=== PATIENT | female | born 1940 | race Caucasian/White ===

== ENCOUNTER → 2018-01-24 | Outpatient (CLI) | payer MEDICARE, OTHER ==
[~2018-01-24] MED LIST: AMLO10; AMLO10 PO; ARIP10 PO; ASPI325; ASPI81CH PO; ATOR20 PO; Abilify5 MG PO; CIPR500 PO; CLOP75 PO; CODACE30 PO; Cilostazol50 MG PO; DONE5 PO; ERGO400 PO; FOLI1 PO; FOLI400 PO; FURO20 PO; LAMO100; LAMO100 PO; LEVSOD125; LEVSOD75 PO; LISI20 PO; METO10 PO; METPHE10 PO; NAPR500; POTA10T PO; Percocet 5-3251 EACH PO; Peri-Colace Ta1 EACH PO; Prozac40 MG PO; RXCODACET PO; Synthroid25 MCG PO; THIA100 PO; TOCO1000 PO; TRAM50 PO; Ultram50 MG PO; VITAMIN B122500 MCG PO; Zofran Odt4 MG SL
[2018-01-24 11:07] LABS: BASOPHILS ABSOLUTE AUTO 0.02 K/mm3 (0.00-0.23); BASOPHILS PERCENT AUTO 1 % (0-2); EOSINOPHILS ABSOLUTE AUTO 0.02 K/mm3 (0.00-0.68); EOSINOPHILS PERCENT AUTO 1 % (0-6); Hematocrit 36.3 % (33.0-51.0); Hemoglobin 12.8 g/dL (11.5-16.0); IMMATURE GRAN ABSOLUTE AUTO 0.01 K/mm3 (0.00-0.10); IMMATURE GRAN PERCENT AUTO 0 % (0-1); LYMPHOCYTES ABSOLUTE AUTO 0.68 K/mm3 (0.84-5.20); LYMPHOCYTES PERCENT AUTO 16 % (21-46); MONOCYTES ABSOLUTE AUTO 0.43 K/mm3 (0.16-1.47); MONOCYTES PERCENT AUTO 10 % (4-13); Mean Corpuscular HGB Conc 35.3 g/dL (31.5-36.5); Mean Corpuscular Volume 91 fL (80-100); Mean Platelet Volume 11.1 fL (9.1-12.4); NEUTROPHILS ABSOLUTE AUTO 3.06 K/mm3 (1.96-9.15); NEUTROPHILS PERCENT AUTO 73 % (41-73); Platelet Count 137 K/mm3 (150-400); RDW Coefficient Variation 13.1 % (11.7-14.2); RDW Standard Deviation 43.6 fL (35.1-46.3); White Blood Cell Count 4.22 K/mm3 (4.00-11.30)
[2018-01-24 11:14] LABS: Bun/Creatinine Ratio 7.1 (12.0-20.0); Calcium, Blood 9.5 mg/dL (8.5-10.1); Creatinine, Blood 1.13 mg/dL (0.40-1.00); Potassium, Blood 4.5 mmol/L (3.5-5.5)
== END | disposition home or self-care (01) ==
LOC: LAB EV 11:04 → LAB SHORT 11:04
PROVIDERS: Physician Assistant Surgical
DX: E86.0 Dehydration (principal)
CPT/HCPCS: 80048; 85025

== ENCOUNTER → 2018-09-10 | Outpatient (CLI) | payer MEDICARE ==
[~2018-09-10] MED LIST changes: +Kristalose20 GM PO; +METO25ER PO; +PRAM.125 PO
[2018-09-10 14:56] LABS: BASOPHILS ABSOLUTE AUTO 0.03 K/mm3 (0.00-0.23); BASOPHILS PERCENT AUTO 1 % (0-2); EOSINOPHILS ABSOLUTE AUTO 0.52 K/mm3 (0.00-0.68); EOSINOPHILS PERCENT AUTO 10 % (0-6); Hemoglobin 11.5 g/dL (11.5-16.0); IMMATURE GRAN ABSOLUTE AUTO 0.02 K/mm3 (0.00-0.10); IMMATURE GRAN PERCENT AUTO 0 % (0-1); LYMPHOCYTES ABSOLUTE AUTO 1.09 K/mm3 (0.84-5.20); LYMPHOCYTES PERCENT AUTO 20 % (21-46); MONOCYTES ABSOLUTE AUTO 0.52 K/mm3 (0.16-1.47); MONOCYTES PERCENT AUTO 10 % (4-13); Mean Corpuscular HGB 32.5 pg (26.0-34.0); Mean Corpuscular HGB Conc 33.8 g/dL (31.5-36.5); Mean Corpuscular Volume 96 fL (80-100); Mean Platelet Volume 12.8 fL (9.1-12.4); NEUTROPHILS PERCENT AUTO 59 % (41-73); Platelet Count 108 K/mm3 (150-400); RDW Coefficient Variation 14.7 % (11.7-14.2); RDW Standard Deviation 51.9 fL (35.1-46.3); Red Blood Cell Count 3.54 M/mm3 (3.80-5.20); White Blood Cell Count 5.38 K/mm3 (4.00-11.30)
[2018-09-10 15:03] LABS: Bun/Creatinine Ratio 13.8 (12.0-20.0); Calcium, Blood 8.6 mg/dL (8.5-10.1); Creatinine, Blood 1.59 mg/dL (0.40-1.00); Potassium, Blood 3.6 mmol/L (3.5-5.5)
== END | disposition home or self-care (01) ==
LOC: LAB SHORT 14:51 → LAB EV 14:51
PROVIDERS: Family Medicine
DX: R19.7 Diarrhea, unspecified (principal)
CPT/HCPCS: 80048; 85025

== ENCOUNTER 2018-09-16 16:10 | Emergency (ER) | payer MEDICARE, OTHER ==
[~2018-09-16] VITALS: Ht 160 cm; Wt 45.4 kg
[~2018-09-16 16:10] MED LIST changes: -Kristalose20 GM PO
[2018-09-16 17:15] LABS: BASOPHILS ABSOLUTE AUTO 0.03 K/mm3 (0.00-0.23); BASOPHILS PERCENT AUTO 1 % (0-2); EOSINOPHILS ABSOLUTE AUTO 0.13 K/mm3 (0.00-0.68); EOSINOPHILS PERCENT AUTO 2 % (0-6); Hematocrit 36.7 % (33.0-51.0); Hemoglobin 12.1 g/dL (11.5-16.0); IMMATURE GRAN ABSOLUTE AUTO 0.02 K/mm3 (0.00-0.10); IMMATURE GRAN PERCENT AUTO 0 % (0-1); LYMPHOCYTES ABSOLUTE AUTO 1.15 K/mm3 (0.84-5.20); LYMPHOCYTES PERCENT AUTO 18 % (21-46); MONOCYTES ABSOLUTE AUTO 0.56 K/mm3 (0.16-1.47); MONOCYTES PERCENT AUTO 9 % (4-13); Mean Corpuscular HGB 32.4 pg (26.0-34.0); Mean Corpuscular Volume 98 fL (80-100); Mean Platelet Volume 12.4 fL (9.1-12.4); NEUTROPHILS ABSOLUTE AUTO 4.52 K/mm3 (1.96-9.15); NEUTROPHILS PERCENT AUTO 71 % (41-73); Platelet Count 133 K/mm3 (150-400); RDW Coefficient Variation 14.7 % (11.7-14.2); RDW Standard Deviation 53.2 fL (35.1-46.3); Red Blood Cell Count 3.74 M/mm3 (3.80-5.20); White Blood Cell Count 6.41 K/mm3 (4.00-11.30)
[2018-09-16 17:31] LABS: International Normalized Ratio 1.15
[2018-09-16 17:43] LABS: Alanine Aminotransfer (ALT/SGP 96 U/L (12-78); Albumin, Blood 3.4 g/dL (3.4-5.0); Albumin/Globulin Ratio 0.9 (0.8-1.8); Alk Phos 209 U/L (50-136); Anion Gap 8 mmol/L (6-16); Aspartate Aminotrans (AST/SGOT 145 U/L (12-37); Bilirubin, Total 0.6 mg/dL (0.1-1.0); Blood Urea Nitrogen 24 mg/dL (8-24); Bun/Creatinine Ratio 32.5 (12.0-20.0); CO2, Blood 24 mmol/L (21-32); Chloride, Blood 103 mmol/L (98-108); Creatinine, Blood 0.74 mg/dL (0.40-1.00); Globulin, Blood 3.6 g/dL (2.2-4.0); Glomerular Filtration Rate >60 (60-); Glucose, Blood 143 mg/dL (70-99); Potassium, Blood 3.8 mmol/L (3.5-5.5); Sodium, Blood 135 mmol/L (136-145)
[2018-09-16] MEDS ORDERED: Kristalose20 GM PO (20:31)
== END 2018-09-16 20:48 | disposition home or self-care (01) ==
LOC: ER 16:10
PROVIDERS: Physician Assistant
DX: K62.3 Rectal prolapse (principal); K59.00 Constipation, unspecified; K64.9 Unspecified hemorrhoids; I10 Essential (primary) hypertension; F20.9 Schizophrenia, unspecified; J44.9 Chronic obstructive pulmonary disease, unspecified; F31.9 Bipolar disorder, unspecified; Z86.73 Personal history of transient ischemic attack (TIA), and cerebral infarction without residual deficits; Z87.891 Personal history of nicotine dependence; Z79.899 Other long term (current) drug therapy
CPT/HCPCS: 46600; 80053; 85025; 85610; 85730; 86850; 86900; 86901; 93005; 93010; 99283-25

== ENCOUNTER → 2018-09-16 | Outpatient (CLI) | payer MEDICARE ==
[2018-09-17 00:06] LABS: Adenovirus F 40/41 Not Detected (NOT DETECT); Astrovirus Not Detected (NOT DETECT); Campylobacter Sp Not Detected (NOT DETECT); Cryptosporidium Not Detected (NOT DETECT); Cyclospora Cayetanensis Not Detected (NOT DETECT); E. Coli O157 Not Detected (NOT DETECT); Entamoeba Histolytica Not Detected (NOT DETECT); Enteroaggregative E. coli-EAEC Not Detected (NOT DETECT); Enteropathogenic E. coli-EPEC Not Detected (NOT DETECT); Enterotoxigenic E. coli-ETEC Not Detected (NOT DETECT); Giardia Lamblia Not Detected (NOT DETECT); Norovirus GI/GII Not Detected (NOT DETECT); Plesiomonas Shigelloides Not Detected (NOT DETECT); Rotavirus A Not Detected (NOT DETECT); Salmonella Sp Not Detected (NOT DETECT); Sapovirus Not Detected (NOT DETECT); Shiga Toxin-prod E. coli-STEC Not Detected (NOT DETECT); Shigella/Enteroin E. coli-EIEC Not Detected (NOT DETECT); Vibrio Cholerae Not Detected (NOT DETECT); Vibrio Sp Not Detected (NOT DETECT); Yersinia Enterocolitica Not Detected (NOT DETECT)
== END | disposition home or self-care (01) ==
LOC: LAB 17:32 → LAB SHORT 17:32
PROVIDERS: Family Medicine
DX: R19.7 Diarrhea, unspecified (principal)
CPT/HCPCS: 87507

== ENCOUNTER 2018-10-30 16:38 | Inpatient (IN) | payer MEDICARE, OTHER ==
[~2018-10-30] VITALS: Ht 165.1 cm; Wt 50.1 kg
[~2018-10-30 16:38] MED LIST changes: +Kristalose20 GM PO
[2018-10-30 18:42] LABS: BASOPHILS ABSOLUTE AUTO 0.03 K/mm3 (0.00-0.23); BASOPHILS PERCENT AUTO 1 % (0-2); EOSINOPHILS PERCENT AUTO 2 % (0-6); Hematocrit 36.8 % (33.0-51.0); Hemoglobin 12.5 g/dL (11.5-16.0); IMMATURE GRAN ABSOLUTE AUTO 0.03 K/mm3 (0.00-0.10); IMMATURE GRAN PERCENT AUTO 1 % (0-1); LYMPHOCYTES PERCENT AUTO 15 % (21-46); MONOCYTES ABSOLUTE AUTO 0.69 K/mm3 (0.16-1.47); MONOCYTES PERCENT AUTO 12 % (4-13); Mean Corpuscular HGB 32.7 pg (26.0-34.0); Mean Corpuscular Volume 96 fL (80-100); Mean Platelet Volume 11.9 fL (9.1-12.4); NEUTROPHILS ABSOLUTE AUTO 4.25 K/mm3 (1.96-9.15); NEUTROPHILS PERCENT AUTO 71 % (41-73); Platelet Count 156 K/mm3 (150-400); RDW Coefficient Variation 14.3 % (11.7-14.2); RDW Standard Deviation 51.2 fL (35.1-46.3); Red Blood Cell Count 3.82 M/mm3 (3.80-5.20)
[2018-10-30 19:08] LABS: Alanine Aminotransfer (ALT/SGP 113 U/L (12-78); Albumin, Blood 2.8 g/dL (3.4-5.0); Albumin/Globulin Ratio 0.8 (0.8-1.8); Alk Phos 148 U/L (50-136); Anion Gap 7 mmol/L (6-16); Aspartate Aminotrans (AST/SGOT 182 U/L (12-37); Bilirubin, Total 0.7 mg/dL (0.1-1.0); Blood Urea Nitrogen 17 mg/dL (8-24); CO2, Blood 25 mmol/L (21-32); Calcium, Blood 8.1 mg/dL (8.5-10.1); Chloride, Blood 97 mmol/L (98-108); Creatinine, Blood 0.71 mg/dL (0.40-1.00); Globulin, Blood 3.6 g/dL (2.2-4.0); Glomerular Filtration Rate >60 (60-); Glucose, Blood 86 mg/dL (70-99); Potassium, Blood 3.5 mmol/L (3.5-5.5); Sodium, Blood 129 mmol/L (136-145); Total Protein, Blood 6.4 g/dL (6.4-8.2); Troponin I 0.016 ng/mL (0.000-0.040)
[2018-10-31 05:26] LABS: Hematocrit 32.5 % (33.0-51.0); Hemoglobin 11.1 g/dL (11.5-16.0); Mean Corpuscular HGB 31.8 pg (26.0-34.0); Mean Corpuscular HGB Conc 34.2 g/dL (31.5-36.5); Mean Platelet Volume 12.5 fL (9.1-12.4); Platelet Count 137 K/mm3 (150-400); Red Blood Cell Count 3.49 M/mm3 (3.80-5.20); White Blood Cell Count 5.22 K/mm3 (4.00-11.30)
[2018-10-31 05:28] LABS: Mean Corpuscular Volume 93 fL (80-100)
[2018-10-31 05:39] LABS: International Normalized Ratio 1.18; Prothrombin Time Results 12.3 Sec (9.7-11.5)
[2018-10-31 05:55] LABS: Alanine Aminotransfer (ALT/SGP 95 U/L (12-78); Albumin, Blood 2.3 g/dL (3.4-5.0); Albumin/Globulin Ratio 0.8 (0.8-1.8); Alk Phos 127 U/L (50-136); Anion Gap 5 mmol/L (6-16); Aspartate Aminotrans (AST/SGOT 167 U/L (12-37); Bilirubin, Total 0.7 mg/dL (0.1-1.0); Blood Urea Nitrogen 17 mg/dL (8-24); Bun/Creatinine Ratio 22.4 (12.0-20.0); CO2, Blood 26 mmol/L (21-32); Calcium, Blood 7.8 mg/dL (8.5-10.1); Chloride, Blood 102 mmol/L (98-108); Creatinine, Blood 0.76 mg/dL (0.40-1.00); Globulin, Blood 2.9 g/dL (2.2-4.0); Glomerular Filtration Rate >60 (60-); Glucose, Blood 94 mg/dL (70-99); Potassium, Blood 3.3 mmol/L (3.5-5.5); Sodium, Blood 133 mmol/L (136-145); Total Protein, Blood 5.2 g/dL (6.4-8.2)
--- NOTE | 2018-10-31 06:28 | NUR ---
NOC SHIFT SUMMARY PT ADMITTED THIS NIGHT FOR NEW ONSET CHF AND LOWER EXTREMITY EDEMA. SHE IS AAOX4 AND VERY PLEASANT AND COOPERATIVE. WAS NOT ABLE TO COMPLETE MED REC PT IS NOT SURE WHAT SHE TAKES OR WHEN. HAVE CAREGIVERS PHONE NUMBER AND WILL LET ONCOMING NURSE KNOW. PT HAS BEEN INCONTINENT OF BOTH URINE AND BOWEL AND STATES SHE DOES NOT KNOW WHEN SHE HAS BOWEL MOVEMENTS. SHE HAS HAD NOT COMPLAINTS OF DISCOMFORT THIS NIGHT EXCEPT FOR FEELING COLD. A WARM BLANKET WAS PROVIDED. CURRENTLY APPEARS IN NO ACUTE DISTRESS. VSS. WILL CONTINUE TO MONITOR.
--- NOTE | 2018-10-31 06:49 | NUR ---
ATTEMPTED FEM CATH WITH NO RESULTS.PT HAS BEEN INCONTINENT OF BLADDER AND HAS A WET ATTENDS.
--- NOTE | 2018-10-31 11:48 | NUR ---
Echocardiogram completed.
[2018-10-31] MEDS ORDERED: NITR100CA PO (17:18)
--- NOTE | 2018-10-31 19:04 | NUR ---
SHIFT SUMMARY. A&OX3, PLEASANT AND COOPERATIVE, 1 ASSIST WITH FWW AND GB. PT UP TO CHAIR FOR MEALS. PT DENIES PAIN, SOB, N/V. PER CAREGIVER SHE REPORTS THAT PT'S BLE EDEMA HAS GREATLY IMPROVED. ECHO COMPLETED TODAY. PT WITH MILD REDNESS TO GLUTEAL CLEFT SECONDARY TO INCONTINENCE, ROUTINE INCONTINCE CARE PERFORMED WITH APPLICATION OF BARRIER CREAM. PT RESTARTED ON MACROBID FOR OUTPATIENT UTI. NO OTHER CHANGES.
[2018-11-01 05:21] LABS: BASOPHILS ABSOLUTE AUTO 0.03 K/mm3 (0.00-0.23); BASOPHILS PERCENT AUTO 1 % (0-2); EOSINOPHILS ABSOLUTE AUTO 0.06 K/mm3 (0.00-0.68); EOSINOPHILS PERCENT AUTO 1 % (0-6); Hematocrit 33.1 % (33.0-51.0); Hemoglobin 11.5 g/dL (11.5-16.0); IMMATURE GRAN ABSOLUTE AUTO 0.04 K/mm3 (0.00-0.10); IMMATURE GRAN PERCENT AUTO 1 % (0-1); LYMPHOCYTES ABSOLUTE AUTO 0.91 K/mm3 (0.84-5.20); LYMPHOCYTES PERCENT AUTO 20 % (21-46); MONOCYTES ABSOLUTE AUTO 0.48 K/mm3 (0.16-1.47); MONOCYTES PERCENT AUTO 11 % (4-13); Mean Corpuscular HGB 32.4 pg (26.0-34.0); Mean Corpuscular HGB Conc 34.7 g/dL (31.5-36.5); Mean Corpuscular Volume 93 fL (80-100); Mean Platelet Volume 11.1 fL (9.1-12.4); NEUTROPHILS ABSOLUTE AUTO 3.02 K/mm3 (1.96-9.15); NEUTROPHILS PERCENT AUTO 67 % (41-73); Platelet Count 152 K/mm3 (150-400); RDW Coefficient Variation 14.1 % (11.7-14.2); RDW Standard Deviation 48.2 fL (35.1-46.3); Red Blood Cell Count 3.55 M/mm3 (3.80-5.20); White Blood Cell Count 4.54 K/mm3 (4.00-11.30)
[2018-11-01 05:44] LABS: Magnesium, Blood 1.9 mg/dL (1.6-2.4)
[2018-11-01 05:49] LABS: Alanine Aminotransfer (ALT/SGP 97 U/L (12-78); Albumin, Blood 2.4 g/dL (3.4-5.0); Albumin/Globulin Ratio 0.8 (0.8-1.8); Alk Phos 128 U/L (50-136); Anion Gap 8 mmol/L (6-16); Aspartate Aminotrans (AST/SGOT 160 U/L (12-37); Bilirubin, Total 0.6 mg/dL (0.1-1.0); Blood Urea Nitrogen 15 mg/dL (8-24); Bun/Creatinine Ratio 20.7 (12.0-20.0); CO2, Blood 24 mmol/L (21-32); Calcium, Blood 7.9 mg/dL (8.5-10.1); Chloride, Blood 102 mmol/L (98-108); Creatinine, Blood 0.72 mg/dL (0.40-1.00); Glomerular Filtration Rate >60 (60-); Glucose, Blood 80 mg/dL (70-99); Potassium, Blood 3.2 mmol/L (3.5-5.5); Sodium, Blood 134 mmol/L (136-145); Total Protein, Blood 5.4 g/dL (6.4-8.2)
--- NOTE | 2018-11-01 06:32 | NUR ---
NOC SHIFT SUMMARY PT PLEASANT AND COOPERATIVE WITH CARE THIS NIGHT. HAS SLEPT A GOOD DEAL THIS NIGHT. CONTINUES TO BE INCONTINENT OF BOWEL AND BLADDER. SHE DID COMPLAIN OF SOME TIGHTNESS IN HER LUNGS AND FEELING IF SHE COULD NOT GET A FULL BREATH. LISTENED TO LUNGS, CHECKED VITAL SIGNS, TELE MONITOR THESE WERE WNL. CALLED RT FOR A BREATHING TREATMENT. WHEN I REASSESSED PT SHE STATES THAT FEELING OF "TIGHTNESS" RESOLVED COMPLETELY AND SHE FEELS FINE, THOUGH SHE DOES NOT THINK THE BREAATHING TREATMENT HELPED. NO OTHER CHANGES TO REPORT THIS NIGHT. PT CURRENTLY SLEEPING AND APPEARS IN NO ACUTE DISTRESS. WILL CONTINUE TO MONITOR.
--- NOTE | 2018-11-01 09:55 | NUR ---
PATIENT WAS OFFERED A SHOWER AND DECLINED SHE WANTS TO TAKE ONE AT HOME WITH HER CAREGIVER WHEN SHE IS DISCHARGED TODAY. RN NOTIFIED.
[2018-11-01] MEDS ORDERED: FURO20 PO (15:14)
[2018-11-01] MEDS ORDERED: HYDRA25 PO (15:14)
[2018-11-01] MEDS ORDERED: POTCHL20ER PO (15:17)
--- NOTE | 2018-11-01 16:09 | NUR ---
D/C MED REC: PER DR. MIDDLETON, CONTINUE FOLLOWING HOME MEDS ON DISCHARGE 1) CILOSTAZOL 50 MG PO BID 2) FOLIC ACID 0.4 MG PO DAILY 3) LAMICTAL 50 MG PO DAILY
--- NOTE | 2018-11-01 17:33 | NUR ---
1650 PT DISHCARGED HOME VIA PERSONAL VEHICLE ACCOMPANIED AND DRIVEN BY CAREGIVER CARLOTTA. PT ESCORTED TO FACILITY ENTRANCE VIA W/C BY CONCRETE ENGINEER. IV REMOVED. NEW RX FAXED TO [facility] PER PT REQUEST. D/C INSTRUCTIONS REVIEWED WITH CARLOTTA AND PT AND COPY PROVIDED. NO NEW CHANGES.
== END 2018-11-01 16:50 | disposition home health service (06) | DRG 293 ==
LOC: ER 16:38 → MEDS 22:19
PROVIDERS: Internal Medicine; Nurse Practitioner Acute Care; Physician Assistant; ADMIT Hospitalist
DX: I11.0 Hypertensive heart disease with heart failure (principal); I50.33 Acute on chronic diastolic (congestive) heart failure; F31.9 Bipolar disorder, unspecified; J44.9 Chronic obstructive pulmonary disease, unspecified; I10 Essential (primary) hypertension; E03.9 Hypothyroidism, unspecified; Z86.73 Personal history of transient ischemic attack (TIA), and cerebral infarction without residual deficits; G62.9 Polyneuropathy, unspecified; S00.03XA Contusion of scalp, initial encounter; W19.XXXA Unspecified fall, initial encounter; I16.0 Hypertensive urgency; Z79.02 Long term (current) use of antithrombotics/antiplatelets; I73.9 Peripheral vascular disease, unspecified; F20.9 Schizophrenia, unspecified; I25.10 Atherosclerotic heart disease of native coronary artery without angina pectoris; Z87.891 Personal history of nicotine dependence; Z66 Do not resuscitate
CPT/HCPCS: 36415; 70450; 70486; 71046; 80053; 82306; 83735; 83880; 84145; 84443; 84484; 85025; 85027; 85610; 93005; 93010; 93306; 94640; 94760; 96374; 96375; 97116; 97162; 97166; 97530; 99285-25; J0360; J1650; J1940

== ENCOUNTER → 2018-11-20 | Outpatient (CLI) | payer MEDICARE, OTHER ==
[~2018-11-20] MED LIST changes: +HYDRA25 PO; +NITR100CA PO; +POTCHL20ER PO
== END | disposition home or self-care (01) ==
LOC: LAB SHORT 13:18 → LAB 13:18
DX: K52.9 Noninfective gastroenteritis and colitis, unspecified (principal)
CPT/HCPCS: 87493